=== PATIENT | female | born 1935 | race Asian ===

== ENCOUNTER → 2016-05-06 | Outpatient (CLI) | payer OTHER, MEDICARE ==
[~2016-05-06] VITALS: Ht 152.4 cm; Wt 61.0 kg
[~2016-05-06] MED LIST: ALBU8.5H IH; ALLO100T PO; AMLO-511 PO; ASPI81 PO; BUDE10.2 IH; DSS100 PO; FAMO20 PO; LOSA50TA37 PO; VITAD1000 PO
[2016-05-06 13:13] VITALS: BP 103/52
== END | disposition home or self-care (01) ==
LOC: SRCNTR 12:51
PROVIDERS: ATTEND Internal Medicine Critical Care Medicine
DX: K21.9 Gastro-esophageal reflux disease without esophagitis (principal); J45.21 Mild intermittent asthma with (acute) exacerbation; R05 Cough
CPT/HCPCS: G0463

== ENCOUNTER → 2016-08-03 | Outpatient (CLI) | payer OTHER, MEDICARE ==
[~2016-08-03] VITALS: Ht 154.9 cm; Wt 63.0 kg
[2016-08-03 11:52] VITALS: BP 111/43
== END | disposition home or self-care (01) ==
LOC: SRCNTR 11:42
PROVIDERS: ATTEND Internal Medicine Critical Care Medicine
DX: K21.9 Gastro-esophageal reflux disease without esophagitis (principal); J45.21 Mild intermittent asthma with (acute) exacerbation; R05 Cough; I10 Essential (primary) hypertension
CPT/HCPCS: G0463

== ENCOUNTER → 2016-10-30 | Outpatient (CLI) | payer OTHER, MEDICARE ==
[~2016-10-30] VITALS: Ht 154.9 cm; Wt 62.0 kg
[2016-10-30 13:41] VITALS: BP 166/80
== END | disposition home or self-care (01) ==
LOC: SRCNTR 12:45
PROVIDERS: ATTEND Internal Medicine Critical Care Medicine
DX: K21.9 Gastro-esophageal reflux disease without esophagitis (principal); J45.21 Mild intermittent asthma with (acute) exacerbation; M10.9 Gout, unspecified; I10 Essential (primary) hypertension; Z79.82 Long term (current) use of aspirin; Z90.49 Acquired absence of other specified parts of digestive tract
CPT/HCPCS: G0463

== ENCOUNTER → 2017-03-01 | Outpatient (CLI) | payer OTHER, MEDICARE ==
[~2017-03-01] VITALS: Ht 154.9 cm; Wt 62.0 kg
[~2017-03-01] MED LIST changes: -ALBU8.5H IH; +ALBU8.5H8 IH
[2017-03-01 11:04] VITALS: BP 134/71
== END | disposition home or self-care (01) ==
LOC: SRCNTR 10:54
PROVIDERS: ATTEND Internal Medicine Critical Care Medicine
DX: J45.21 Mild intermittent asthma with (acute) exacerbation (principal); K21.9 Gastro-esophageal reflux disease without esophagitis; I10 Essential (primary) hypertension
CPT/HCPCS: G0463